=== PATIENT | male | born 1950 | race Caucasian/White ===

== ENCOUNTER 2019-08-27 18:42 | Emergency (ER) | payer BC, MEDICARE ==
[2019-08-27] MEDS ORDERED: Ibuprofen TAB* 600 MG PO ONE (18:50)
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
[2019-08-27] MEDS ORDERED: Silver Sulfadiazine 1%* 20 GM TOPICAL ONE (20:03)
[2019-08-27] MEDS ORDERED: HYDROcodone/ACETAMIN 5-325 MG* 1 TAB PO ONE ×2 (20:03→20:40)
[2019-08-27 20:54] VITALS: BP 156/77
== END 2019-08-27 20:59 | disposition home or self-care (01) ==
LOC: UCEAST 18:42
DX: T23.251A Burn of second degree of right palm, initial encounter (principal); X18.XXXA Contact with other hot metals, initial encounter; Y92.9 Unspecified place or not applicable
CPT/HCPCS: 99203; A9270-GY; G0463